=== PATIENT | male | born 1990 | race African-American/Black ===

== ENCOUNTER 2024-01-17 21:09 | Emergency (ER) | payer SELFPAY ==
[~2024-01-17] VITALS: Ht 182.9 cm; Wt 109.1 kg
[2024-01-17 21:40] VITALS: BP 136/88; PULSE 108; RESP 18; TEMP 98.5; O2SAT 98
[2024-01-17] MEDS ORDERED: ACE3T PO (22:23)
[2024-01-17] MEDS: ONDANSETRON ODT 4 MG TAB PO ONE (22:30)
[2024-01-17] MEDS: HYDROcodone-ACET 5/325MG TAB PO ONE (22:30)
[2024-01-17] MEDS: KETOROLAC TROMETH 60MG/2ML VIAL IM ONE (22:40)
== END 2024-01-17 23:45 | disposition home or self-care (01) ==
LOC: EDBD 21:09 → ER 21:09
DX: S50.02XA Contusion of left elbow, initial encounter (principal); S40.022A Contusion of left upper arm, initial encounter; Z79.899 Other long term (current) drug therapy; V89.2XXA Person injured in unspecified motor-vehicle accident, traffic, initial encounter; Y93.I9 Activity, other involving external motion; Y92.89 Other specified places as the place of occurrence of the external cause; Y99.8 Other external cause status
CPT/HCPCS: 73060; 73080; 96372; 99284; J1885; Q0162